=== PATIENT | female | born 1955 | race Caucasian/White ===

== ENCOUNTER → 2018-02-11 13:00 | Outpatient (CLI) | payer OTHER, SELFPAY | PROVIDERS: Family Provider Physician Assistant; PCP Physician Assistant | DX: Z23 Encounter for immunization (principal) | CPT/HCPCS: 90471; 90686 ==

== ENCOUNTER → 2018-05-24 10:12 | Outpatient (CLI) | payer OTHER, SELFPAY ==
--- NOTE | 2018-05-24 10:16 | DI.MG.S_ITS ---
BILATERAL DIGITAL SCREENING MAMMOGRAM 3D/2D WITH CAD: 05/24/2018 CLINICAL: Routine screening. Comparison is made to exams dated: 05/21/2017 mammogram, 05/18/2016 mammogram, and 05/16/2015 mammogram - [facility]. There are scattered fibroglandular elements in both breasts. Current study was also evaluated with a Computer Aided Detection (CAD) system. No significant masses, calcifications, or other findings are seen in either breast. There has been no significant interval change. IMPRESSION: NEGATIVE There is no mammographic evidence of malignancy. A 1 year screening mammogram is recommended. This exam was interpreted at Station ID: [id number]. NOTE: For mammograms, a report in lay terms will be sent to the patient. Approximately 15% of breast malignancies will not be visualized mammographically. In the management of a palpable breast mass, a negative mammogram must not discourage biopsy of a clinically suspicious lesion. Electronically Signed By: Guerrero gamboa/je:05/26/2018 10:21:53 letter sent: Normal Exam ACR BI-RADS Category 1: Negative 3341F
== END ==
PROVIDERS: Family Provider Physician Assistant; PCP Physician Assistant; Visit Provider Physician Assistant
DX: Z12.31 Encounter for screening mammogram for malignant neoplasm of breast (principal)
CPT/HCPCS: 77063; 77067

== ENCOUNTER → 2018-11-18 08:28 | Outpatient (CLI) | payer OTHER, SELFPAY ==
[2018-11-18 10:12] LABS: Hemoglobin A1C% w Est Avg Glu 5.8 % (4.0-6.0)
[2018-11-18 10:16] LABS: Creatinine Urine Random 115.4 mg/dL
[2018-11-18 10:19] LABS: Alanine Aminotransferase 37 IU/L (9-52); Albumin 4.7 g/dL (3.5-5.0); Albumin Globulin Ratio 1.3 (1.0-2.8); Alkaline Phosphatase 86 U/L (38-126); Aspartate Aminotransferase 29 IU/L (14-36); BUN Creatinine Ratio 26.3 (6-22); Bilirubin Total 0.6 mg/dL (0.2-1.3); Blood Urea Nitrogen 21 mg/dL (7-17); Calcium 9.4 mg/dL (8.4-10.2); Carbon Dioxide 29 mmol/L (22-32); Chloride 103 mmol/L (98-107); Cholesterol 224 mg/dL (140-199); Estimated Glomerular Filt Rate > 60.0 mL/min (>60); Globulin 3.5 g/dL (1.7-4.1); Glucose 111 mg/dL (80-110); HDL Cholesterol 52 mg/dL (40-60); HEMOLYSIS < 15 (0-50); LDL Cholesterol Calculated 132 mg/dL (<100); Potassium 4.2 mmol/L (3.4-5.1); Sodium 142 mmol/L (137-145); Total Protein 8.2 g/dL (6.3-8.2); Triglycerides 198 mg/dL (35-150)
[2018-11-18 10:20] LABS: Microalbumi Creatinin Ratio Ur 15.5 ug/mg CR (<30); Microalbumin Urine Random 1.8 mg/dL (0-1.6)
== END ==
PROVIDERS: Family Provider Physician Assistant; PCP Physician Assistant; Visit Provider Physician Assistant
DX: E78.5 Hyperlipidemia, unspecified (principal); I10 Essential (primary) hypertension; R73.01 Impaired fasting glucose
CPT/HCPCS: 36415; 80053; 80061; 82043; 82570; 83036

== ENCOUNTER → 2019-02-17 13:28 | Outpatient (CLI) | payer OTHER, SELFPAY | PROVIDERS: PCP Physician Assistant | DX: Z23 Encounter for immunization (principal) | CPT/HCPCS: 90471; 90686 ==

== ENCOUNTER → 2019-05-26 08:10 | Outpatient (CLI) | payer OTHER, SELFPAY ==
[2019-05-26 08:51] LABS: Alanine Aminotransferase 31 IU/L (<35); Albumin 4.9 g/dL (3.5-5.0); Albumin Globulin Ratio 1.4 (1.0-2.8); Alkaline Phosphatase 89 U/L (38-126); Aspartate Aminotransferase 33 IU/L (14-36); BUN Creatinine Ratio 23.3 (6-22); Bilirubin Total 0.6 mg/dL (0.2-1.3); Blood Urea Nitrogen 21 mg/dL (7-17); Calcium 9.6 mg/dL (8.4-10.2); Carbon Dioxide 26 mmol/L (22-32); Chloride 102 mmol/L (98-107); Cholesterol 223 mg/dL (140-199); Estimated Glomerular Filt Rate > 60.0 mL/min (>60); Globulin 3.4 g/dL (1.7-4.1); Glucose 116 mg/dL (80-110); HDL Cholesterol 55 mg/dL (40-60); HEMOLYSIS < 15 (0-50); LDL Cholesterol Calculated 137 mg/dL (<100); Potassium 4.2 mmol/L (3.4-5.1); Sodium 138 mmol/L (137-145); Total Protein 8.3 g/dL (6.3-8.2); Triglycerides 155 mg/dL (35-150)
[2019-05-26 10:00] LABS: Creatinine Urine Random 164.7 mg/dL
[2019-05-26 10:05] LABS: Microalbumi Creatinin Ratio Ur 20.6 ug/mg CR (<30); Microalbumin Urine Random 3.4 mg/dL (0-1.6)
== END ==
PROVIDERS: PCP Physician Assistant; Visit Provider Physician Assistant
DX: E78.5 Hyperlipidemia, unspecified (principal); I10 Essential (primary) hypertension; R73.01 Impaired fasting glucose
CPT/HCPCS: 36415; 80053; 80061; 82043; 82570; 83036

== ENCOUNTER → 2019-06-15 13:35 | Outpatient (CLI) | payer OTHER, SELFPAY ==
--- NOTE | 2019-06-15 13:37 | DI.MG.S_ITS ---
BILATERAL DIGITAL SCREENING MAMMOGRAM 3D/2D WITH CAD: 06/15/2019 CLINICAL: Routine screening. Comparison is made to exams dated: 05/24/2018 mammogram, 05/21/2017 mammogram, and 05/18/2016 mammogram - [facility]. There are scattered fibroglandular elements in both breasts. Current study was also evaluated with a Computer Aided Detection (CAD) system. No significant masses, calcifications, or other findings are seen in either breast. There has been no significant interval change. IMPRESSION: NEGATIVE There is no mammographic evidence of malignancy. A 1 year screening mammogram is recommended. This exam was interpreted at Station ID: [id number]. NOTE: For mammograms, a report in lay terms will be sent to the patient. Approximately 15% of breast malignancies will not be visualized mammographically. In the management of a palpable breast mass, a negative mammogram must not discourage biopsy of a clinically suspicious lesion. Electronically Signed By: Pardeep wynn/je:06/16/2019 11:24:19 letter sent: Normal Exam ACR BI-RADS Category 1: Negative 3341F
== END ==
PROVIDERS: PCP Physician Assistant; Visit Provider Physician Assistant
DX: Z12.31 Encounter for screening mammogram for malignant neoplasm of breast (principal)
CPT/HCPCS: 77063; 77067

== ENCOUNTER → 2020-02-25 | Outpatient (CLI) | payer OTHER, SELFPAY | PROVIDERS: PCP Registered Nurse Diabetes Educator; Referring Provider Internal Medicine; Visit Provider Internal Medicine | DX: Z23 Encounter for immunization (principal) | CPT/HCPCS: 90471; 90686 ==

== ENCOUNTER → 2020-03-03 08:34 | Outpatient (CLI) | payer OTHER, SELFPAY ==
[2020-03-03 09:48] LABS: Add Manual Diff / Slide Review NO; Basophils Absolute Auto 100 /uL (0-100); Basophils Percent Auto 0.8 % (0-2); Eosinophils Absolute Auto 100 /uL (0-450); Eosinophils Percent Auto 1.8 % (2-4); Hematocrit 40.7 % (36-46); Hemoglobin 13.6 g/dL (12.0-16.0); Lymphocytes Absolute Auto 1500 /uL (1100-4500); Lymphocytes Percent Auto 24.9 % (25-40); Mean Corpuscular HGB Conc 33.4 % (30-36); Mean Corpuscular Hemoglobin 29.8 PG (26-34); Mean Corpuscular Volume 89.1 fL (80-100); Monocytes Absolute Auto 400 /uL (0-900); Monocytes Percent Auto 6.7 % (3-14); Neutrophils Absolute Auto 4100 /uL (1500-7000); Neutrophils Percent Auto 65.8 % (50-75); Platelet Count 214 X10^3/uL (150-400); Red Blood Cell Count 4.57 X10^6/uL (4.0-5.2); Red Cell Distribution Width 13.7 % (11.6-14.8); White Blood Cell Count 6.2 X10^3/uL (4.5-11.0)
[2020-03-03 10:21] LABS: Alanine Aminotransferase 31 IU/L (<35); Albumin 4.5 g/dL (3.5-5.0); Albumin Globulin Ratio 1.4 (1.0-2.8); Alkaline Phosphatase 83 U/L (38-126); Aspartate Aminotransferase 31 IU/L (14-36); BUN Creatinine Ratio 24.1 (6-22); Bilirubin Total 0.6 mg/dL (0.2-1.3); Blood Urea Nitrogen 20 mg/dL (7-17); Calcium 9.5 mg/dL (8.4-10.2); Carbon Dioxide 29 mmol/L (22-32); Chloride 103 mmol/L (98-107); Cholesterol 218 mg/dL (140-199); Estimated Glomerular Filt Rate > 60.0 mL/min (>60); Globulin 3.3 g/dL (1.7-4.1); Glucose 104 mg/dL (80-110); HDL Cholesterol 60 mg/dL (40-60); HEMOLYSIS < 15 (0-50); LDL Cholesterol Calculated 127 mg/dL (<100); Potassium 4.2 mmol/L (3.4-5.1); Sodium 140 mmol/L (137-145); Total Protein 7.8 g/dL (6.3-8.2); Triglycerides 157 mg/dL (35-150)
[2020-03-03 10:27] LABS: Hemoglobin A1C% w Est Avg Glu 6.1 % (4.0-6.0)
[2020-03-03 10:37] LABS: TSH w/ Reflex to FT4 1.63 uIU/mL (0.47-4.68)
== END ==
PROVIDERS: PCP Registered Nurse Diabetes Educator; Referring Provider Registered Nurse Diabetes Educator; Visit Provider Registered Nurse Diabetes Educator
DX: E78.5 Hyperlipidemia, unspecified (principal); I10 Essential (primary) hypertension; R73.01 Impaired fasting glucose
CPT/HCPCS: 36415; 80053; 80061; 83036; 84443; 85025

== ENCOUNTER → 2020-06-02 08:52 | Outpatient (CLI) | payer OTHER, SELFPAY ==
[2020-06-02] MEDS: COVID-19 VACC(MODERNA-1)/PF 100 MCG/0.5 ML VIAL IM (08:57)
== END ==
PROVIDERS: PCP Registered Nurse Diabetes Educator; Visit Provider Internal Medicine
DX: Z23 Encounter for immunization (principal)
CPT/HCPCS: 0011A; 91301

== ENCOUNTER → 2020-07-01 08:50 | Outpatient (CLI) | payer OTHER, SELFPAY ==
[2020-07-01] MEDS: COVID-19 VACC #2, MRNA(MOD) 100 MCG/0.5 ML VIAL IM (08:58)
== END ==
PROVIDERS: PCP Registered Nurse Diabetes Educator; Visit Provider Internal Medicine
DX: Z23 Encounter for immunization (principal)
CPT/HCPCS: 0012A; 91301

== ENCOUNTER → 2020-07-13 08:29 | Outpatient (CLI) | payer OTHER, SELFPAY ==
[2020-07-13 10:02] LABS: Cholesterol 186 mg/dL (140-199); HDL Cholesterol 75 mg/dL (40-60); LDL Cholesterol Calculated 82 mg/dL (<100); Triglycerides 145 mg/dL (35-150)
== END ==
PROVIDERS: PCP Registered Nurse Diabetes Educator; Referring Provider Registered Nurse Diabetes Educator; Visit Provider Registered Nurse Diabetes Educator
DX: E78.5 Hyperlipidemia, unspecified (principal)
CPT/HCPCS: 36415; 80061

== ENCOUNTER → 2021-01-12 14:18 | Outpatient (CLI) | payer OTHER, SELFPAY ==
--- NOTE | 2021-01-12 14:19 | DI.MG.S_ITS ---
BILATERAL DIGITAL SCREENING MAMMOGRAM 3D/2D WITH CAD: 01/12/2021 CLINICAL: Routine screening. Comparison is made to exams dated: 06/15/2019 mammogram, 05/24/2018 mammogram, and 05/21/2017 mammogram - [facility]. There are scattered fibroglandular elements in both breasts. Current study was also evaluated with a Computer Aided Detection (CAD) system. There are benign calcifications in both breasts. No significant masses, calcifications, or other findings are seen in either breast. There has been no significant interval change. IMPRESSION: BENIGN There is no mammographic evidence of malignancy. A 1 year screening mammogram is recommended. This exam was interpreted at Station ID: [id number]. NOTE: For mammograms, a report in lay terms will be sent to the patient. Approximately 15% of breast malignancies will not be visualized mammographically. In the management of a palpable breast mass, a negative mammogram must not discourage biopsy of a clinically suspicious lesion. Electronically Signed By: Andriy alvarado/je:01/12/2021 14:39:05 letter sent: Normal Exam ACR BI-RADS Category 2: Benign Finding(s) 3342F
== END ==
PROVIDERS: PCP Registered Nurse Diabetes Educator; Referring Provider Registered Nurse Diabetes Educator; Visit Provider Registered Nurse Diabetes Educator
DX: Z12.31 Encounter for screening mammogram for malignant neoplasm of breast (principal)
CPT/HCPCS: 77063; 77067

== ENCOUNTER → 2021-02-24 10:10 | Outpatient (CLI) | payer OTHER, SELFPAY ==
[2021-02-24 12:45] LABS: COVID19 -Nasal RAPID Negative (Negative)
== END ==
PROVIDERS: PCP Registered Nurse Diabetes Educator; Visit Provider Physician Assistant
DX: Z20.822 Contact with and (suspected) exposure to COVID-19 (principal)
CPT/HCPCS: 87635

== ENCOUNTER → 2021-02-28 09:54 | Outpatient (CLI) | payer OTHER, SELFPAY ==
[2021-02-28 12:21] LABS: COVID19 -Nasal RAPID Negative (Negative)
== END ==
PROVIDERS: PCP Registered Nurse Diabetes Educator; Referring Provider Nurse Practitioner Family; Visit Provider Nurse Practitioner Family
DX: Z20.822 Contact with and (suspected) exposure to COVID-19 (principal)
CPT/HCPCS: 87635

== ENCOUNTER → 2021-03-02 10:04 | Outpatient (CLI) | payer OTHER, SELFPAY | PROVIDERS: PCP Registered Nurse Diabetes Educator; Referring Provider Internal Medicine; Visit Provider Internal Medicine | DX: Z23 Encounter for immunization (principal) | CPT/HCPCS: 90471; 90662 ==

== ENCOUNTER → 2021-03-06 10:26 | Outpatient (CLI) | payer OTHER, SELFPAY ==
[2021-03-06 12:38] LABS: COVID19 -Nasal RAPID Negative (Negative)
== END ==
PROVIDERS: PCP Registered Nurse Diabetes Educator; Visit Provider Nurse Practitioner Family
DX: Z20.822 Contact with and (suspected) exposure to COVID-19 (principal)
CPT/HCPCS: 87635

== ENCOUNTER → 2021-04-14 10:52 | Outpatient (CLI) | payer OTHER, SELFPAY ==
[2021-04-14] MEDS: COVID-19 VACC #3, MRNA(MOD) 50 MCG/0.25 ML VIAL IM (11:04)
== END ==
PROVIDERS: PCP Registered Nurse Diabetes Educator; Visit Provider Internal Medicine
DX: Z23 Encounter for immunization (principal)
CPT/HCPCS: 0013A; 91301

== ENCOUNTER → 2021-05-29 08:10 | Outpatient (CLI) | payer OTHER, SELFPAY ==
[2021-05-29 09:24] LABS: Alanine Aminotransferase 33 IU/L (<35); Albumin 4.5 g/dL (3.5-5.0); Albumin Globulin Ratio 1.5 (1.0-2.8); Alkaline Phosphatase 76 U/L (38-126); Aspartate Aminotransferase 32 IU/L (14-36); BUN Creatinine Ratio 28.9 (6-22); Bilirubin Total 0.6 mg/dL (0.2-1.3); Blood Urea Nitrogen 26 mg/dL (7-17); Calcium 9.7 mg/dL (8.4-10.2); Carbon Dioxide 27 mmol/L (22-32); Chloride 105 mmol/L (98-107); Cholesterol 168 mg/dL (140-199); Estimated Glomerular Filt Rate > 60.0 mL/min (>60); Globulin 3.1 g/dL (1.7-4.1); Glucose 115 mg/dL (80-110); HDL Cholesterol 67 mg/dL (40-60); HEMOLYSIS < 15 (0-50); LDL Cholesterol Calculated 70 mg/dL (<100); Potassium 4.1 mmol/L (3.4-5.1); Sodium 139 mmol/L (137-145); Total Protein 7.6 g/dL (6.3-8.2); Triglycerides 155 mg/dL (35-150)
[2021-05-29 09:26] LABS: Hematocrit 39.1 % (36-46); Hemoglobin 13.1 g/dL (12.0-16.0); Mean Corpuscular HGB Conc 33.6 % (30-36); Mean Corpuscular Hemoglobin 29.4 PG (26-34); Mean Corpuscular Volume 87.6 fL (80-100); Platelet Count 216 X10^3/uL (150-400); Red Blood Cell Count 4.47 X10^6/uL (4.0-5.2); White Blood Cell Count 5.9 X10^3/uL (4.5-11.0)
[2021-05-29 09:30] LABS: Hemoglobin A1C% w Est Avg Glu 6.3 % (4.0-6.0)
[2021-05-29 10:04] LABS: TSH w/ Reflex to FT4 1.82 uIU/mL (0.47-4.68)
== END ==
PROVIDERS: PCP Registered Nurse Diabetes Educator; Referring Provider Registered Nurse Diabetes Educator; Visit Provider Registered Nurse Diabetes Educator
DX: E78.5 Hyperlipidemia, unspecified (principal); I10 Essential (primary) hypertension; R73.01 Impaired fasting glucose
CPT/HCPCS: 36415; 80053; 80061; 83036; 84443; 85027

== ENCOUNTER → 2021-06-14 14:34 | Outpatient (CLI) | payer OTHER, SELFPAY | PROVIDERS: PCP Registered Nurse Diabetes Educator; Referring Provider Registered Nurse Diabetes Educator; Visit Provider Registered Nurse Diabetes Educator | DX: Z13.820 Encounter for screening for osteoporosis (principal); Z78.0 Asymptomatic menopausal state | CPT/HCPCS: 77080 ==

== ENCOUNTER → 2022-01-27 10:27 | Outpatient (CLI) | payer OTHER, SELFPAY ==
--- NOTE | 2022-01-27 10:28 | DI.MG.S_ITS ---
BILATERAL DIGITAL SCREENING MAMMOGRAM 3D/2D WITH CAD: 01/27/2022 CLINICAL: Routine screening. Comparison is made to exams dated: 01/12/2021 mammogram, 06/15/2019 mammogram, and 05/24/2018 mammogram - [facility]. There are scattered areas of fibroglandular density in both breasts (category b / 25%-50% glandular tissue). Current study was also evaluated with a Computer Aided Detection (CAD) system. There are benign calcifications in both breasts. No significant masses, calcifications, or other findings are seen in either breast. There has been no significant interval change. IMPRESSION: BENIGN There is no mammographic evidence of malignancy. A 1 year screening mammogram is recommended. Based on the Tyrer Cuzick model (a risk assessment model) the patient's lifetime risk is 4.0% and her 10 year risk is 2.1%. According to the ACR, ACS, and NCCN guidelines, an annual breast MRI exam along with mammogram is recommended if the patient's lifetime risk is 20% or greater. This exam was interpreted at Station ID: [id number]. NOTE: For mammograms, a report in lay terms will be sent to the patient. Approximately 15% of breast malignancies will not be visualized mammographically. In the management of a palpable breast mass, a negative mammogram must not discourage biopsy of a clinically suspicious lesion. Electronically Signed By: Pardeep lechuga/je:01/30/2022 08:06:06 letter sent: Normal Exam ACR BI-RADS Category 2: Benign Finding(s) 3342F
== END ==
PROVIDERS: PCP Registered Nurse Diabetes Educator; Referring Provider Registered Nurse Diabetes Educator; Visit Provider Registered Nurse Diabetes Educator
DX: Z12.31 Encounter for screening mammogram for malignant neoplasm of breast (principal)
CPT/HCPCS: 77063; 77067

== ENCOUNTER → 2022-02-20 08:07 | Outpatient (CLI) | payer OTHER, SELFPAY | PROVIDERS: PCP Registered Nurse Diabetes Educator; Referring Provider Internal Medicine; Visit Provider Internal Medicine | DX: Z23 Encounter for immunization (principal) | CPT/HCPCS: 90471; 90662 ==

== ENCOUNTER → 2022-04-12 13:35 | Outpatient (CLI) | payer OTHER, SELFPAY ==
[2022-04-12 15:11] LABS: Glucose 92 mg/dL (80-110)
[2022-04-12 15:28] LABS: Hemoglobin A1C% w Est Avg Glu 6.3 % (4.0-6.0)
== END ==
PROVIDERS: PCP Registered Nurse Diabetes Educator; Referring Provider Registered Nurse Diabetes Educator; Visit Provider Registered Nurse Diabetes Educator
DX: R73.01 Impaired fasting glucose (principal); Z13.820 Encounter for screening for osteoporosis
CPT/HCPCS: 36415; 82947; 83036

== ENCOUNTER → 2022-05-18 13:24 | Outpatient (CLI) | payer OTHER, SELFPAY | PROVIDERS: PCP Registered Nurse Diabetes Educator; Referring Provider Registered Nurse Diabetes Educator; Visit Provider Registered Nurse Diabetes Educator | DX: R01.1 Cardiac murmur, unspecified (principal) | CPT/HCPCS: 93005 ==

== ENCOUNTER → 2022-06-08 13:09 | Outpatient (CLI) | payer OTHER, SELFPAY ==
--- NOTE | 2022-06-08 13:12 | DI.ECHO.S_ITS ---
[place] [facility]---------+ [facility] +---------+ : : [address] : : : : [id number] : : : : Phone: [phone]---------+ Echocardiogram Report + + :Name: JODI GUZMAN Study Date: 06/08/2022 Height: 64 in : :[facility] ReadingLocation: Weight: 191 lb : : Gender: Female BSA: 1.9 m2 : :: 1955 Age: 66 yrs BP: 158/83 mmHg: :Reason For Study: Murmur : : Performed By: Yahaira Potter : :Referring: FELICITAS IYER : + + Interpretation Summary The ejection fraction is estimated to be 60-65%. Diastolic function could not be accurately assessed due to unobtainable data. The right ventricle is normal in size and function. The left atrium is mildly dilated. There is mild mitral regurgitation. There is trace aortic regurgitation. Unable to estimate PASP. The ascending aorta is mildly enlarged. Procedure: A two-dimensional transthoracic echocardiogram with color flow and Doppler was performed. The study quality was technically adequate. There is no prior echocardiogram noted for this patient. The patient was in normal sinus rhythm during the exam. Left Ventricle: The left ventricle is normal in size. Left ventricular wall thickness is borderline increased. There is no ventricular septal defect visualized. The ejection fraction is estimated to be 60-65%. Left ventricular wall motion is normal. Diastolic function could not be accurately assessed due to unobtainable data. Right Ventricle: The right ventricle is normal in size and function. Atria: The left atrium is mildly dilated. Right atrial size is normal. There is no Doppler evidence for an interatrial shunt. Mitral Valve: The mitral valve is normal in structure and function. There is mild mitral regurgitation. Aortic Valve: The aortic valve is not well visualized. The aortic valve is trileaflet. There is mild aortic valve sclerosis. There is no aortic valve stenosis. There is trace aortic regurgitation. Tricuspid Valve: The tricuspid valve is not well visualized, but is grossly normal. Pulmonary artery pressures cannot be estimated because of the lack of a measurable TR jet velocity but the IVC suggests a CVP of around 3 mmHg. No tricuspid regurgitation. Pulmonic Valve: The pulmonic valve is not well seen, but is grossly normal. Great Vessels: The aortic root is normal size. The ascending aorta is mildly enlarged. The aortic arch is at the upper limits of normal in size. The IVC is of normal diameter and collapses greater than 50% with a sniff. This suggests a low right atrial pressure of 3 mm Hg. Pericardium/ Pleura There is no pericardial effusion. MMode/2D Measurements & Calculations LVIDd: 4.8 cm LVOT diam: 2.0 cm LVIDs: 2.8 cm Ao root diam: 3.1 cm FS: 42.5 % asc Aorta Diam: 3.8 cm EPSS: 0.57 cm Ao Arch Diam (Prox Trans): 3.2 cm IVSd: 0.82 cm LVPWd: 0.91 cm LV begum. diameter/BSA (cm/m^2): 2.5 LV sys. diameter/BSA (cm/m^2): 1.4 LA A2 area: 19.7 cm2 RA long axis: 5.0 cm LA A4 area: 21.8 cm2 RA area: 15.4 cm2 LA length (vol): 5.4 cm RA vol: 40.2 ml LA vol: 67.1 ml RA : 21.0 ml/m2 LA vol index: 35.0 ml/m2 IVC diam: 1.1 cm RVD1 (basal): 3.8 cm TAPSE: 2.4 cm Doppler Measurements & Calculations Ao V2 max: 187.8 cm/sec LVOT Max Anil: 89.3 cm/sec Ao V2 mean: 120.1 cm/sec LV V1 max P.2 mmHg Ao max P.1 mmHg LV V1 VTI: 23.9 cm Ao mean P.6 mmHg LEENA(I,D): 1.9 cm2 Ao V2 VTI: 41.8 cm LEENA(V,D): 1.6 cm2 sev ratio: 0.57 LEENA indexed to BSA (cm^2/m^2): 0.98 MV E max anil: 75.6 cm/sec PA V2 max: 94.9 cm/sec MV A max anil: 79.8 cm/sec PA V2 mean: 64.6 cm/sec MV E/A: 0.95 PA mean P.9 mmHg Med Peak E' Anil: 6.5 cm/sec PA pr(Accel): 19.9 mmHg E/E' med: 11.6 Lat Peak E' Anil: 7.3 cm/sec E/E' lat: 10.3 E/e' average: 10.9 MV dec time: 0.23 sec PISA: 0.37 cm2 SV(LVOT): 78.5 ml MR flow rate: 13.6 cm3/sec MR PISA radius: 0.24 cm Reading Physician:03:36 PM
== END ==
PROVIDERS: PCP Registered Nurse Diabetes Educator; Referring Provider Registered Nurse Diabetes Educator; Visit Provider Registered Nurse Diabetes Educator
DX: I08.0 Rheumatic disorders of both mitral and aortic valves (principal); I77.89 Other specified disorders of arteries and arterioles; R01.1 Cardiac murmur, unspecified
CPT/HCPCS: 93306

== ENCOUNTER → 2022-06-12 06:57 | Outpatient (CLI) | payer OTHER, SELFPAY ==
[2022-06-12 07:20] LABS: Hematocrit 39.6 % (36-46); Hemoglobin 12.9 g/dL (12.0-16.0); Mean Corpuscular HGB Conc 32.6 % (30-36); Mean Corpuscular Hemoglobin 28.8 PG (26-34); Mean Corpuscular Volume 88.2 fL (80-100); Platelet Count 201 X10^3/uL (150-400); Red Blood Cell Count 4.49 X10^6/uL (4.0-5.2); Red Cell Distribution Width 14.2 % (11.6-14.8); White Blood Cell Count 5.1 X10^3/uL (4.5-11.0)
[2022-06-12 08:58] LABS: Alanine Aminotransferase 29 IU/L (<35); Alkaline Phosphatase 75 U/L (38-126); Aspartate Aminotransferase 29 IU/L (14-36); BUN Creatinine Ratio 28.4 (6-22); Bilirubin Total 0.5 mg/dL (0.2-1.3); Blood Urea Nitrogen 23 mg/dL (7-17); Calcium 9.3 mg/dL (8.4-10.2); Carbon Dioxide 28 mmol/L (22-32); Chloride 103 mmol/L (98-107); Cholesterol 146 mg/dL (140-199); Estimated Glomerular Filt Rate > 60 mL/min (>60); Glucose 109 mg/dL (80-110); HDL Cholesterol 63 mg/dL (40-60); HEMOLYSIS < 15 (0-50); LDL Cholesterol Calculated 56 mg/dL (<100); Potassium 4.4 mmol/L (3.4-5.1); Sodium 140 mmol/L (137-145); Total Protein 7.8 g/dL (6.3-8.2); Triglycerides 133 mg/dL (35-150)
[2022-06-15 16:05] LABS: Albumin 4.5 g/dL (3.5-5.0); Albumin Globulin Ratio 1.4 (1.0-2.8); Globulin 3.3 g/dL (1.7-4.1)
== END ==
PROVIDERS: PCP Registered Nurse Diabetes Educator; Referring Provider Registered Nurse Diabetes Educator; Visit Provider Registered Nurse Diabetes Educator
DX: E78.5 Hyperlipidemia, unspecified (principal); I10 Essential (primary) hypertension; R73.01 Impaired fasting glucose
CPT/HCPCS: 36415; 80053; 80061; 85027

== ENCOUNTER 2022-07-25 09:24 | Emergency (ER) | payer OTHER, MEDICARE, SELFPAY ==
[2022-07-25 09:33] VITALS: BP 145/65; PULSE 60; RESP 16; TEMP 36.7; O2SAT 99; BMI 30.9
--- NOTE | 2022-07-25 10:05 | ED_ITS ---
HPI - Allergic Reaction General Chief complaint: Allergic Reaction Stated complaint: allergic reaction on face Time Seen by Provider: 07/25/22 09:59 Source: patient Mode of arrival: Ambulatory Limitations: no limitations History of Present Illness HPI narrative: The patient saw her dentist yesterday, she had her dentures refitted. When she bit down on the dentures she felt a tingling in her right mandible area. She developed swelling to the upper lip. The swelling persists. She has only minimal pain to her gum. She is no swelling to her tongue, no tightness in her airway. She is no wheezing or stridor. She denies shortness of breath. She is no fever. Edema is limited to the upper lip. Related Data Home Medications Medication Instructions Recorded Confirmed Fish Oil (#MAREPA) 1,200 mg PO QDAY ##0 03/28/12 06/13/22 calcium carb-ergocalciferol (vit tab PO 07/13/20 06/13/22 D2) 500 mg-125 unit tablet Previous Rx's Medication Instructions Recorded [Carpal Tunnel Brace] ea ##1 11/07/16 atenolol 50 mg tablet 50 mg PO DAILY #90 tabs 06/13/22 gabapentin 100 mg capsule 100 mg PO HS #90 caps 06/13/22 meloxicam 15 mg tablet 15 mg PO DAILY #90 tabs 06/13/22 rosuvastatin 10 mg tablet 10 mg PO BEDTIME #90 tabs 06/13/22 amoxicillin 875 mg-potassium 1 tab PO BID #14 tabs 07/25/22 clavulanate 125 mg tablet prednisone 20 mg tablet 40 mg PO DAILY 5 days #10 tabs 07/25/22 Allergies Allergy/AdvReac Type Severity Reaction Status Date / Time No Known Drug Allergies Allergy Verified 07/25/22 09:38 Review of Systems Constitutional Constitutional: Reports as per HPI, Denies chills, Denies fatigue, Denies fever(s) and Denies headache(s) Eyes Eyes: Denies blurry vision and Denies change in vision ENT Ears, Nose, Mouth, and Throat: Reports as per HPI, Reports dental pain, Denies dysphagia, Denies dizziness, Denies ear discharge, Denies otalgia, Denies facial pain and Denies headache(s) Cardiovascular Cardiovascular: Denies chest pain, Denies rapid heart rate and Denies dyspnea Respiratory Respiratory: Denies cough and Denies dyspnea Gastrointestinal Gastrointestinal: Denies dysphagia Neurologic Neurologic: Denies dizziness and Denies headache(s) Endocrine Endocrine: Denies fatigue Patient History Medical History Ascending aorta enlargement Left atrial dilation Mild mitral regurgitation Osteoarthritis, hand Systolic murmur Family History Father Type II diabetes mellitus Essential hypertension Mother Hyperlipidemia Type II diabetes mellitus Social History Smoking Status: Never smoker second hand exposure: Yes (only when I go to the [employer], but I don't go very often. ) alcohol intake: current (wine only on special occasions.) substance use type: does not use Smoking Status: Never smoker alcohol intake frequency: 0-2 drinks per day Substance Use Type: does not use Exam Initial Vital Signs Initial Vital Signs: Vital Signs Temperature 98.1 F 07/25/22 09:33 Pulse Rate 60 07/25/22 09:33 Respiratory Rate 16 07/25/22 09:33 Blood Pressure 145/65 H 07/25/22 09:33 Pulse Oximetry 99 07/25/22 09:33 Oxygen Delivery Method Room Air 07/25/22 09:33 Const General: comfortable, well developed and well groomed HENMT Head: normocephalic and atraumatic (Other than her lip) Nose: external nose normal [facility] Other: Edema to the upper lip, no warmth. No suggestion of cellulitis. No tongue or oropharyngeal edema. Abrasion to the right gum, likely associated with the fitting yesterday. Neck Neck: normal visual inspection and No lymphadenopathy Chest Chest: normal inspection of the chest Resp Auscultation: clear to auscultation bilaterally Course Orders Ordered: Discontinued Medications Amoxicillin/Clavulanate Potassium (Amoxicillin/Clav 875/125 Mg) 1 tab PO NOW ONE Stop: 07/25/22 10:05 Prednisone (Prednisone 20 Mg Tablet) 40 mg PO NOW ONE Stop: 07/25/22 10:05 Vital Signs Vital signs: Vital Signs - 8 hr 07/25/22 09:33 Temperature 98.1 F Pulse Rate 60 Respiratory Rate 16 Blood Pressure 145/65 H Pulse Oximetry 99 Oxygen Delivery Method Room Air Discharge Plan Departure Patient Disposition: Home Clinical Impression: Abrasion of gum, Lip edema Instructions: DI for Abrasion Activity Restrictions/Additional Instructions: There is a small injury to your gum from the fitting. I am going to put you on both steroids for possible allergic reaction, as well as Augmentin, an antibiotic. Follow-up with your dentist for repeat evaluation for using the dentures. Augmentin and prednisone prescriptions have been forwarded to your pharmacy. Return here if you developed increased facial swelling or if you develop airway tightness. Prescriptions: New amoxicillin-pot clavulanate 875-125 mg tablet 1 tab PO BID Qty: 14 0RF prednisone 20 mg tablet 40 mg PO DAILY 5 Days Qty: 10 0RF No Action Fish Oil (#MAREPA) 1,200 mg PO QDAY Qty: 0 [Carpal Tunnel Brace] Qty: 1 0RF calcium carbonate-vitamin D2 500-125 mg-unit tablet PO atenolol 50 mg tablet 50 mg PO DAILY Qty: 90 3RF gabapentin 100 mg capsule 100 mg PO HS Qty: 90 3RF meloxicam 15 mg tablet 15 mg PO DAILY Qty: 90 3RF rosuvastatin 10 mg tablet 10 mg PO BEDTIME Qty: 90 3RF Referrals: Ousmane Ortiz ARNP [Primary Care Provider] - Stand Alone Forms: Patient Portal/API
[2022-07-25] MEDS: predniSONE 20 MG TABLET 40 MG PO (10:13)
[2022-07-25] MEDS: AMOXICILLIN/CLAV 875/125 MG 1 TAB PO (10:13)
== END 2022-07-25 10:34 | disposition home or self-care (01) ==
PROVIDERS: Emergency Provider Emergency Medicine; PCP Registered Nurse Diabetes Educator
DX: S00.512A Abrasion of oral cavity, initial encounter (principal); R60.0 Localized edema
CPT/HCPCS: 99283

== ENCOUNTER → 2022-09-11 13:30 | Outpatient (CLI) | payer OTHER, MEDICARE, SELFPAY ==
[2022-09-11 15:31] LABS: Influenza A - CEPHEID Flu A POSITIVE (NEGATIVE); Influenza B - CEPHEID Flu B NEGATIVE (NEGATIVE); Respiratory Syncytial Virus Negative (Negative)
[2022-09-11 16:10] LABS: COVID-19 CEPHEID 4-PLEX PCR Negative (Negative)
== END ==
PROVIDERS: PCP Registered Nurse Diabetes Educator; Visit Provider Registered Nurse Diabetes Educator
DX: U07.1 COVID-19 (principal)
CPT/HCPCS: 0241U

== ENCOUNTER → 2022-09-20 11:50 | Outpatient (CLI) | payer OTHER, MEDICARE, SELFPAY ==
--- NOTE | 2022-09-20 11:50 | DI.RAD.S_ITS ---
PROCEDURE: XR CHEST 2V INDICATIONS: cough, persisting TECHNIQUE: 2 views of the chest were acquired. COMPARISON: [facility], , CHEST 2 VIEW, 02/27/2017, 10:20. FINDINGS: Surgical changes and devices: None. Lungs and pleura: Lungs are clear. No pleural effusions or pneumothorax. Chronic elevation the right hemidiaphragm. Mediastinum: Mediastinal contours are normal. Heart size is normal. Bones and chest wall: No suspicious bony abnormalities. Soft tissues appear unremarkable. IMPRESSION: No acute cardiopulmonary disease. Dictated by: Bobby Galloway [facility] Interpreted: Yordan Sandoval MD on 09/20/2022 at 12:18 Transcribed by: LITZY on 09/20/2022 at 12:19 Approved by: Yordan Sandoval M.D. on 09/20/2022 at 16:28
== END ==
PROVIDERS: PCP Registered Nurse Diabetes Educator; Referring Provider Nurse Practitioner Family; Visit Provider Nurse Practitioner Family
DX: J06.9 Acute upper respiratory infection, unspecified (principal)
CPT/HCPCS: 71046

== ENCOUNTER → 2022-11-06 08:32 | Outpatient (CLI) | payer OTHER, MEDICARE, SELFPAY ==
[2022-11-06 10:50] LABS: Glucose 104 mg/dL (80-110)
== END ==
PROVIDERS: PCP Registered Nurse Diabetes Educator; Referring Provider Registered Nurse Diabetes Educator; Visit Provider Registered Nurse Diabetes Educator
DX: R73.01 Impaired fasting glucose (principal)
CPT/HCPCS: 36415; 82947; 83036

== ENCOUNTER → 2023-02-06 12:46 | Outpatient (CLI) | payer OTHER, MEDICARE, SELFPAY ==
--- NOTE | 2023-02-06 | DI.MG.S_ITS ---
BILATERAL DIGITAL SCREENING MAMMOGRAM 3D/2D WITH CAD: 02/06/2023 CLINICAL: Routine screening. Comparison is made to exams dated: 01/27/2022 mammogram, 01/12/2021 mammogram, and 06/15/2019 mammogram - [facility]. There are scattered areas of fibroglandular density in both breasts (category b / 25%-50% glandular tissue). Current study was also evaluated with a Computer Aided Detection (CAD) system. There is a possible developing oval asymmetry in the left breast posterior depth lateral region seen on the craniocaudal view only. This is more prominent. No other significant masses, calcifications, or other findings are seen in either breast. IMPRESSION: INCOMPLETE: NEEDS ADDITIONAL IMAGING EVALUATION The possible developing oval asymmetry in the left breast is indeterminate. Additional views with possible ultrasound are recommended. Based on the Tyrer Cuzick model (a risk assessment model) the patient's lifetime risk is 3.8% and her 10 year risk is 2.1%. According to the ACR, ACS, and NCCN guidelines, an annual breast MRI exam along with mammogram is recommended if the patient's lifetime risk is 20% or greater. This exam was interpreted at Station ID: [id number]. NOTE: For mammograms, a report in lay terms will be sent to the patient. Approximately 15% of breast malignancies will not be visualized mammographically. In the management of a palpable breast mass, a negative mammogram must not discourage biopsy of a clinically suspicious lesion. Electronically Signed By: Pardeep Arboleda M.D. aty/:02/06/2023 17:38:36 letter sent: Additional Imaging Needed ACR BI-RADS Category 0: Incomplete 3340F
== END ==
PROVIDERS: PCP Registered Nurse Diabetes Educator; Referring Provider Registered Nurse Diabetes Educator; Visit Provider Registered Nurse Diabetes Educator
DX: Z12.31 Encounter for screening mammogram for malignant neoplasm of breast (principal)
CPT/HCPCS: 77063; 77067

== ENCOUNTER → 2023-02-21 13:17 | Outpatient (CLI) | payer OTHER, MEDICARE, SELFPAY ==
--- NOTE | 2023-02-21 | DI.MG.S_ITS ---
UNILATERAL LEFT DIGITAL DIAGNOSTIC MAMMOGRAM 3D/2D WITH ADDITIONAL VIEWS: 02/21/2023 CLINICAL: Additional evaluation requested from prior study. Comparison is made to exams dated: 02/06/2023 mammogram, 01/27/2022 mammogram, 01/12/2021 mammogram, and 06/15/2019 mammogram - [facility]. There are scattered areas of fibroglandular density in the left breast (category b / 25%-50% glandular tissue). There is an asymmetry in the left breast posterior depth lateral region seen on the craniocaudal view only. This is not seen in additional views. No other significant masses or calcifications are seen in the breast. IMPRESSION: BENIGN There is no mammographic evidence of malignancy. The asymmetry in the left breast is consistent with fibroglandular tissue and is benign. A 1 year screening mammogram is recommended. Exam findings were conveyed to the patient. Based on the Tyrer Cuzick model (a risk assessment model) the patient's lifetime risk is 3.8% and her 10 year risk is 2.1%. According to the ACR, ACS, and NCCN guidelines, an annual breast MRI exam along with mammogram is recommended if the patient's lifetime risk is 20% or greater. This exam was interpreted at Station ID: [id number]. NOTE: For mammograms, a report in lay terms will be sent to the patient. Approximately 15% of breast malignancies will not be visualized mammographically. In the management of a palpable breast mass, a negative mammogram must not discourage biopsy of a clinically suspicious lesion. Electronically Signed By: Priyank Stoll M.D. [facility] [place]/:02/21/2023 13:58:51 letter sent: Normal Exam ACR BI-RADS Category 2: Benign Finding(s) 3342F
== END ==
PROVIDERS: PCP Registered Nurse Diabetes Educator; Referring Provider Registered Nurse Diabetes Educator; Visit Provider Registered Nurse Diabetes Educator
DX: R92.8 Other abnormal and inconclusive findings on diagnostic imaging of breast (principal)
CPT/HCPCS: 77065; G0279

== ENCOUNTER → 2023-03-21 15:11 | Outpatient (CLI) | payer OTHER, MEDICARE, SELFPAY | PROVIDERS: PCP Registered Nurse Diabetes Educator; Referring Provider Family Medicine; Visit Provider Family Medicine | DX: Z23 Encounter for immunization (principal) | CPT/HCPCS: 90471; 90662 ==

== ENCOUNTER → 2023-06-11 07:53 | Outpatient (CLI) | payer OTHER, MEDICARE, SELFPAY ==
[2023-06-11 09:01] LABS: Hematocrit 40.9 % (36-46); Hemoglobin 13.7 g/dL (12.0-16.0); Mean Corpuscular HGB Conc 33.4 % (30-36); Mean Corpuscular Hemoglobin 29.8 PG (26-34); Mean Corpuscular Volume 89.3 fL (80-100); Platelet Count 213 X10^3/uL (150-400); Red Blood Cell Count 4.58 X10^6/uL (4.0-5.2); Red Cell Distribution Width 14.1 % (11.6-14.8); White Blood Cell Count 5.5 X10^3/uL (4.5-11.0)
[2023-06-11 09:14] LABS: Alanine Aminotransferase 26 IU/L (<35); Albumin 4.7 g/dL (3.5-5.0); Albumin Globulin Ratio 1.4 (1.0-2.8); Alkaline Phosphatase 75 U/L (38-126); Aspartate Aminotransferase 29 IU/L (14-36); BUN Creatinine Ratio 23.3 (6-22); Bilirubin Total 0.7 mg/dL (0.2-1.3); Blood Urea Nitrogen 20 mg/dL (7-17); Calcium 9.9 mg/dL (8.4-10.2); Carbon Dioxide 27 mmol/L (22-32); Chloride 102 mmol/L (98-107); Cholesterol 173 mg/dL (140-199); Estimated Glomerular Filt Rate > 60 mL/min (>60); Globulin 3.4 g/dL (1.7-4.1); Glucose 106 mg/dL (80-110); HDL Cholesterol 68 mg/dL (40-60); HEMOLYSIS < 15 (0-50); LDL Cholesterol Calculated 72 mg/dL (<100); Potassium 4.3 mmol/L (3.4-5.1); Sodium 136 mmol/L (137-145); Total Protein 8.1 g/dL (6.3-8.2); Triglycerides 165 mg/dL (35-150)
[2023-06-11 09:44] LABS: TSH w/ Reflex to FT4 1.96 uIU/mL (0.47-4.68)
== END ==
PROVIDERS: PCP Registered Nurse Diabetes Educator; Referring Provider Registered Nurse Diabetes Educator; Visit Provider Registered Nurse Diabetes Educator
DX: R73.01 Impaired fasting glucose (principal); E78.5 Hyperlipidemia, unspecified; I10 Essential (primary) hypertension
CPT/HCPCS: 36415; 80053; 80061; 83036; 84443; 85027

== ENCOUNTER → 2023-07-10 11:29 | Outpatient (CLI) | payer OTHER, MEDICARE, SELFPAY ==
--- NOTE | 2023-07-10 11:30 | DI.ECHO.S_ITS ---
[place] +---------+ Hospital +---------+ : : [address] : : : : [id number] : : : : Phone: [phone]---------+ Echocardiogram Report + + :Name: JODI GUZMAN Study Date: 07/10/2023 Height: 64 in : :[facility] ReadingLocation: Weight: 180 lb : : Gender: Female BSA: 1.9 m2 : :: 1955 Age: 67 yrs BP: 170/94 mmHg: :Reason For Study: MITRAL REGURGITATION : :Ordering Physician: SHIREEN, : :FELICITAS Performed By: Cindy Fuentes : :Referring: FELICITAS IYER : + + Interpretation Summary 1) Normal left ventricular thickness, size, wall motion, and systolic function (EF 60-65%). 2) Normal right ventricular size and function. 3) No significant valvular abnormalities. 4) The ascending aorta is mildly enlarged at 3.9cm. 5) Hypertension present during the study (BP 170/94mmHg). 6) Compared to the Echo done 06/08/2022, no significant change. Procedure: A two-dimensional transthoracic echocardiogram with color flow and Doppler was performed. The study quality was technically adequate. Comparison is made with the echocardiogram of 06/08/2022. The patient was in sinus bradycardia with heart rates between 49-65 bpm during the exam. Left Ventricle: The left ventricle is normal in size and wall thickness. The ejection fraction is estimated to be 60-65%. Left ventricular systolic function appears normal without focal wall motion abnormalities. Diastolic parameters suggest a relaxation abnormality of the left ventricle, consistent with probable normal filling pressures. Right Ventricle: The right ventricle is normal in size and function. Atria: The left atrium is moderately dilated. Right atrial size is normal. There is no Doppler evidence for an interatrial shunt. Mitral Valve: The mitral valve is normal in structure and function. There is trace mitral regurgitation. Aortic Valve: The aortic valve is trileaflet. The aortic valve opens well. There is no aortic valve stenosis. No aortic regurgitation is present. Tricuspid Valve: The tricuspid valve is normal in structure and function. There is trace tricuspid regurgitation. Pulmonary artery pressures cannot be estimated because of the lack of a measurable TR jet velocity. Pulmonic Valve: The pulmonic valve leaflets are thin and pliable; valve motion is normal. There is no pulmonic valvular regurgitation. Great Vessels: The aortic root is normal size. The ascending aorta is mildly enlarged. The IVC is of normal diameter and collapses greater than 50% with a sniff. This suggests a low right atrial pressure of 3 mm Hg. Pericardium/ Pleura There is no pericardial effusion. There is no pleural effusion. MMode/2D Measurements & Calculations LVIDd: 4.8 cm LVOT diam: 2.0 cm LVIDs: 3.2 cm Ao root diam: 3.4 cm FS: 33.8 % asc Aorta Diam: 3.9 cm EPSS: 0.98 cm Ao Arch Diam (Prox Trans): 3.1 cm IVSd: 0.96 cm LVPWd: 0.96 cm LV begum. diameter/BSA (cm/m^2): 2.5 LV sys. diameter/BSA (cm/m^2): 1.7 LA A2 area: 22.9 cm2 RA long axis: 5.5 cm LA A4 area: 19.7 cm2 RA area: 18.6 cm2 LA length (vol): 5.8 cm RA vol: 53.4 ml LA vol: 66.6 ml RA : 28.5 ml/m2 LA vol index: 35.6 ml/m2 IVC diam: 1.3 cm RVD1 (basal): 4.2 cm TAPSE: 2.3 cm Doppler Measurements & Calculations Ao V2 max: 154.0 cm/sec LVOT Max Anil: 87.5 cm/sec Ao V2 mean: 110.7 cm/sec LV V1 max P.1 mmHg Ao max P.5 mmHg LV V1 VTI: 25.5 cm Ao mean P.4 mmHg LEENA(I,D): 2.0 cm2 Ao V2 VTI: 39.6 cm LEENA(V,D): 1.7 cm2 sev ratio: 0.64 LEENA indexed to BSA (cm^2/m^2): 1.1 MV E max anil: 67.0 cm/sec TR max anil: 221.9 cm/sec MV A max anil: 94.5 cm/sec TR max P.7 mmHg MV E/A: 0.71 PA V2 max: 86.8 cm/sec Med Peak E' Anil: 6.6 cm/sec PA V2 mean: 67.1 cm/sec E/E' med: 10.2 PA mean P.9 mmHg Lat Peak E' Anil: 9.3 cm/sec PA pr(Accel): 36.2 mmHg E/E' lat: 7.2 E/e' average: 8.7 MV dec time: 0.27 sec SV(LVOT): 77.9 ml Reading Physician:01:32 PM
--- NOTE | 2023-07-10 11:30 | DI.RAD.S_ITS ---
Bone Density Report Name: JODI GUZMAN Age: 67 Sex: Female Ethnicity: Date of : 1955 Indication: screening for osteoporosis; Referring Provider: FELICITAS IYER Study: Bone densitometry was performed. Exam Date: July 10, 2023 Accession number: [id number] Bone Density: Region BMD T-score Z-score Classification AP Spine(L1-L4) 1.297 2.3 4.3 Normal Femoral Neck (Left) 0.842 -0.1 1.6 Normal Total Hip (Left) 0.973 0.3 1.7 Normal Femoral Neck (Right) 0.747 -0.9 0.8 Normal Total Hip (Right) 0.980 0.3 1.7 Normal Total Hip Mean 0.977 0.3 1.7 Normal World Health Organization criteria for BMD impression classify patients as: Normal (T-score at or above -1.0), Osteopenia (T-score between -1.0 and -2.5), or Osteoporosis (T-score at or below -2.5). 10-year Fracture Risk: FRAX not reported because: Premenopausal woman All T-scores for Spine Total, Hip Total, Femoral Neck at or above -1.0 Previous Exams: -- Region Exam Age BMD T-score BMD Change BMD Change Date g/cm2 vs Baseline vs Previous -- AP Spine (L1-L4) 07/10/2023 67 1.297 2.3 -0.061 (-4.5%)# -0.061 (-4.5%)# 06/14/2021 65 1.358 2.8 Total Hip(Left) 07/10/2023 67 0.973 0.3 -0.051 (-5.0%)# -0.051 (-5.0%)# 06/14/2021 65 1.024 0.7 Total Hip(Right) 07/10/2023 67 0.980 0.3 0.045 (4.8%)# 0.045 (4.8%)# 06/14/2021 65 0.935 -0.1 -- *Denotes significance at 95% confidence level, LSC for AP Spine = 0.022 g/cm2, LSC for Total Hip = 0.027 g/cm2 # Denotes dissimilar scan types or analysis methods Impression: The patient's bone mass is within expected range for age, gender and ethnicity. No significant bone loss was observed. Discussion: BONE DENSITY IS WITHIN EXPECTED LIMITS FOR AGE, SEX AND RACE. Bone density is within expected limits for age, sex and race at all sites measured. The patient should follow a healthful lifestyle (good nutrition with adequate calcium and vitamin D, and appropriate weight-bearing exercise). Follow-Up: Consider repeating this study in 5 years or sooner if there is some new clinical indication. Reported by: RADHA NI MD on 07/10/2023 12:15:00 PM.
--- NOTE | 2023-07-10 12:02 | DI.DEXA.S_ITS ---
Bone Density Report Name: JODI GUZMAN Age: 67 Sex: Female Ethnicity: Date of : 1955 Indication: screening for osteoporosis; Referring Provider: FELICITAS IYER Study: Bone densitometry was performed. Exam Date: July 10, 2023 Accession number: [id number] Bone Density: Region BMD T-score Z-score Classification AP Spine(L1-L4) 1.297 2.3 4.3 Normal Femoral Neck (Left) 0.842 -0.1 1.6 Normal Total Hip (Left) 0.973 0.3 1.7 Normal Femoral Neck (Right) 0.747 -0.9 0.8 Normal Total Hip (Right) 0.980 0.3 1.7 Normal Total Hip Mean 0.977 0.3 1.7 Normal World Health Organization criteria for BMD impression classify patients as: Normal (T-score at or above -1.0), Osteopenia (T-score between -1.0 and -2.5), or Osteoporosis (T-score at or below -2.5). 10-year Fracture Risk: FRAX not reported because: Premenopausal woman All T-scores for Spine Total, Hip Total, Femoral Neck at or above -1.0 Previous Exams: -- Region Exam Age BMD T-score BMD Change BMD Change Date g/cm2 vs Baseline vs Previous -- AP Spine (L1-L4) 07/10/2023 67 1.297 2.3 -0.115 (-8.1%)# -0.061 (-4.5%)# 06/14/2021 65 1.358 2.8 -0.054 (-3.8%)* -0.054 (-3.8%)* 05/18/2016 60 1.412 3.3 Total Hip(Left) 07/10/2023 67 0.973 0.3 -0.079 (-7.5%)# -0.051 (-5.0%)# 06/14/2021 65 1.024 0.7 -0.029 (-2.7%)* -0.029 (-2.7%)* 05/18/2016 60 1.053 0.9 Total Hip(Right) 07/10/2023 67 0.980 0.3 -0.028 (-2.8%)# 0.045 (4.8%)# 06/14/2021 65 0.935 -0.1 -0.073 (-7.3%)* -0.073 (-7.3%)* 05/18/2016 60 1.008 0.5 -- *Denotes significance at 95% confidence level, LSC for AP Spine = 0.022 g/cm2, LSC for Total Hip = 0.027 g/cm2 # Denotes dissimilar scan types or analysis methods Impression: The patient's bone mass is within expected range for age, gender and ethnicity. No significant bone loss was observed. Discussion: BONE DENSITY IS WITHIN EXPECTED LIMITS FOR AGE, SEX AND RACE. Bone density is within expected limits for age, sex and race at all sites measured. The patient should follow a healthful lifestyle (good nutrition with adequate calcium and vitamin D, and appropriate weight-bearing exercise). Follow-Up: Consider repeating this study in 5 years or sooner if there is some new clinical indication. Reported by: RONEL BAER M.D. on 07/10/2023 8:32:00 AM.
== END ==
PROVIDERS: PCP Registered Nurse Diabetes Educator; Referring Provider Registered Nurse Diabetes Educator; Visit Provider Registered Nurse Diabetes Educator
DX: I34.0 Nonrheumatic mitral (valve) insufficiency (principal); I77.89 Other specified disorders of arteries and arterioles; I51.7 Cardiomegaly; Z78.0 Asymptomatic menopausal state
CPT/HCPCS: 77080; 93306

== ENCOUNTER 2023-09-22 17:06 | Emergency (ER) | payer OTHER, SELFPAY ==
[2023-09-22] VITALS (18 sets, daily range): BP systolic 101–207; BP diastolic 50–92; PULSE 53–63; RESP 18–33; TEMP 36.4; O2SAT 94–99; BMI 32.5
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
[2023-09-22 18:24] LABS: Add Manual Diff / Slide Review NO; Basophils Absolute Auto 100 /uL (0-100); Basophils Percent Auto 0.4 % (0-2); Eosinophils Absolute Auto 100 /uL (0-450); Hematocrit 43.3 % (36-46); Hemoglobin 14.4 g/dL (12.0-16.0); Lymphocytes Absolute Auto 1800 /uL (1100-4500); Mean Corpuscular HGB Conc 33.3 % (30-36); Mean Corpuscular Hemoglobin 30.2 PG (26-34); Mean Corpuscular Volume 90.7 fL (80-100); Monocytes Absolute Auto 900 /uL (0-900); Monocytes Percent Auto 6.3 % (3-14); Neutrophils Absolute Auto 11300 /uL (1500-7000); Neutrophils Percent Auto 79.3 % (50-75); Platelet Count 201 X10^3/uL (150-400); Red Blood Cell Count 4.77 X10^6/uL (4.0-5.2); Red Cell Distribution Width 14.1 % (11.6-14.8); White Blood Cell Count 14.3 X10^3/uL (4.5-11.0)
[2023-09-22 18:42] LABS: Lactate (Lactic Acid) 1.5 mmol/L (0.7-2.1)
[2023-09-22 18:44] LABS: Alanine Aminotransferase 35 IU/L (<35); Albumin 5.1 g/dL (3.5-5.0); Albumin Globulin Ratio 1.5 (1.0-2.8); Alkaline Phosphatase 76 U/L (38-126); Aspartate Aminotransferase 47 IU/L (14-36); BUN Creatinine Ratio 31.5 (6-22); Bilirubin Total 0.6 mg/dL (0.2-1.3); Blood Urea Nitrogen 29 mg/dL (7-17); Calcium 9.6 mg/dL (8.4-10.2); Carbon Dioxide 30 mmol/L (22-32); Chloride 104 mmol/L (98-107); Estimated Glomerular Filt Rate > 60 mL/min (>60); Ethanol (ETOH) < 10 mg/dL; Globulin 3.5 g/dL (1.7-4.1); Glucose 113 mg/dL (80-110); HEMOLYSIS 21 (0-50); Lipase 181 U/L (23-300); Potassium 4.4 mmol/L (3.4-5.1); Sodium 140 mmol/L (137-145); Total Protein 8.6 g/dL (6.3-8.2)
[2023-09-22 18:52] LABS: INR 0.9 (0.9-1.3); Prothrombin Time 10.7 SECONDS (9.4-12.5)
[2023-09-22 18:55] LABS: PTT Partial Thromboplastin Tim 32 SECONDS (25.1-36.5)
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
[2023-09-22] MEDS: TET,DIPH,PERTUSS(ACELL),VAC/PF 0.5 ML SYRINGE IM (19:27)
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
[2023-09-22] MEDS: MORPHINE 4 MG/ML INJ IV (19:47)
[2023-09-22 20:51] LABS: Ur Creatinine Normal (Normal); Ur Specific Gravity Normal (Normal); Urine Amphetamines Negative (Negative); Urine Barbiturates Negative (Negative); Urine Benzodiazepines Negative (Negative); Urine Cocaine Negative (Negative); Urine MDMA Negative (Negative); Urine Methadone Negative (Negative); Urine Methamphetamines Negative (Negative); Urine Opiates Negative (Negative); Urine Oxycodone Negative (Negative); Urine Phencyclidine Negative (Negative); Urine THC Negative (Negative); Urine Tricyclic Antidepressant Negative (Negative); Urine pH Normal (Normal)
== END 2023-09-22 21:06 | disposition home or self-care (01) ==
PROVIDERS: Emergency Medicine; Emergency Provider Emergency Medicine; PCP Registered Nurse Diabetes Educator
DX: M25.512 Pain in left shoulder (principal); R10.9 Unspecified abdominal pain; V89.2XXA Person injured in unspecified motor-vehicle accident, traffic, initial encounter; Z23 Encounter for immunization
CPT/HCPCS: 71045; 71275; 73030; 74177; 80053; 80305; 80320; 83605; 83690; 85025; 85610; 85730; 86850; 86900; 86901; 90471; 93005; 96374; 99284; 90715; J2270; Q9967

== ENCOUNTER → 2023-09-25 17:41 | Outpatient (CLI) | payer OTHER, SELFPAY ==
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
== END ==
PROVIDERS: PCP Registered Nurse Diabetes Educator; Referring Provider Registered Nurse Diabetes Educator; Visit Provider Registered Nurse Diabetes Educator
DX: M47.812 Spondylosis without myelopathy or radiculopathy, cervical region (principal); M48.02 Spinal stenosis, cervical region; M47.816 Spondylosis without myelopathy or radiculopathy, lumbar region; M54.2 Cervicalgia; M54.50 Low back pain, unspecified
CPT/HCPCS: 72050; 72110

== ENCOUNTER → 2023-10-04 08:16 | Outpatient (CLI) | payer OTHER, SELFPAY ==
--- NOTE | 2023-10-04 08:19 | DI.CT.S_ITS ---
PROCEDURE: CT SACRUM INDICATIONS: further eval sacrum/coccyx TECHNIQUE: Noncontrast 3 mm thick sections acquired through the sacrum and coccyx, with sagittal and oblique coronal reformats then constructed. For radiation dose reduction, the following was used: automated exposure control. COMPARISON: [facility], CT, CT TRAUMA CHEST ABDOMEN PELVIS, 09/22/2023, 18:29. FINDINGS: Image quality: Excellent. Bones: No acute fractures. No suspicious bony lesions. Sacroiliac joints appear intact bilaterally. Soft tissues: Subcutaneous fluid collection is seen at the left lower abdominal wall measuring 5.3 x 3.9 x 4.4 cm, likely a small hematoma. This appears increased in size when compared to the CT from 09/22/2023. There is surrounding subcutaneous edema or ecchymosis. Mild presacral edema. No presacral masses. Visualized rectum and inferior bowel loops are normal in size and caliber. No pathologic free pelvic fluid. IMPRESSION: 1. No acute displaced sacrococcygeal fractures seen. If there is concern for an osseous contusion or trabecular bone injury, MRI could be performed for further evaluation. Trace presacral edema. 2. Small fluid collection in the subcutaneous tissues at the left lower abdominal wall measuring up to 5.3 cm is suspicious for a small hematoma. Approved by: Eduardo Harrison M.D. on 10/04/2023 at 10:11
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
== END ==
LOC: CT 08:16
PROVIDERS: PCP Registered Nurse Diabetes Educator; Referring Provider Registered Nurse Diabetes Educator; Visit Provider Registered Nurse Diabetes Educator
DX: T14.8XXA Other injury of unspecified body region, initial encounter (principal); M43.10 Spondylolisthesis, site unspecified; M47.812 Spondylosis without myelopathy or radiculopathy, cervical region; S39.92XA Unspecified injury of lower back, initial encounter; M54.2 Cervicalgia; V87.7XXA Person injured in collision between other specified motor vehicles (traffic), initial encounter
CPT/HCPCS: 36415; 72125; 72131; 85025

== ENCOUNTER → 2023-10-04 16:58 | Outpatient (CLI) | payer OTHER, SELFPAY ==
[2023-10-04 18:03] LABS: Add Manual Diff / Slide Review NO; Basophils Absolute Auto 100 /uL (0-100); Basophils Percent Auto 1.2 % (0-2); Eosinophils Absolute Auto 300 /uL (0-450); Eosinophils Percent Auto 3.5 % (2-4); Hemoglobin 12.7 g/dL (12.0-16.0); Lymphocytes Absolute Auto 2200 /uL (1100-4500); Lymphocytes Percent Auto 28.9 % (25-40); Mean Corpuscular HGB Conc 33.5 % (30-36); Mean Corpuscular Hemoglobin 30.5 PG (26-34); Monocytes Absolute Auto 600 /uL (0-900); Monocytes Percent Auto 8.6 % (3-14); Neutrophils Absolute Auto 4300 /uL (1500-7000); Neutrophils Percent Auto 57.8 % (50-75); Platelet Count 266 X10^3/uL (150-400); Red Blood Cell Count 4.17 X10^6/uL (4.0-5.2); Red Cell Distribution Width 13.6 % (11.6-14.8); White Blood Cell Count 7.5 X10^3/uL (4.5-11.0)
== END ==
PROVIDERS: PCP Registered Nurse Diabetes Educator; Referring Provider Family Medicine; Visit Provider Family Medicine
DX: T14.8XXA Other injury of unspecified body region, initial encounter (principal); V87.7XXA Person injured in collision between other specified motor vehicles (traffic), initial encounter
CPT/HCPCS: 36415; 85025

== ENCOUNTER → 2024-02-19 11:26 | Outpatient (CLI) | payer OTHER, MEDICARE, SELFPAY ==
--- NOTE | 2024-02-19 11:27 | DI.MG.S_ITS ---
BILATERAL DIGITAL SCREENING MAMMOGRAM 3D/2D WITH CAD: 02/19/2024 CLINICAL: Routine screening. Comparison is made to exams dated: 02/21/2023 mammogram, 02/06/2023 mammogram, 01/27/2022 mammogram, and 01/12/2021 mammogram - [facility]. There are scattered areas of fibroglandular density (category b / 25%-50% glandular tissue). Current study was also evaluated with a Computer Aided Detection (CAD) system. No significant masses, calcifications, or other findings are seen in either breast. There has been no significant interval change. IMPRESSION: NEGATIVE There is no mammographic evidence of malignancy. A 1 year screening mammogram is recommended. Based on the Tyrer Cuzick model (a risk assessment model) the patient's lifetime risk is 3.5% and her 10 year risk is 2.1%. According to the ACR, ACS, and NCCN guidelines, an annual breast MRI exam along with mammogram is recommended if the patient's lifetime risk is 20% or greater. This exam was interpreted at Station ID: [id number]. NOTE: For mammograms, a report in lay terms will be sent to the patient. Approximately 15% of breast malignancies will not be visualized mammographically. In the management of a palpable breast mass, a negative mammogram must not discourage biopsy of a clinically suspicious lesion. Electronically Signed By: Priyank posey/je:02/19/2024 13:02:07 letter sent: Normal Exam ACR BI-RADS Category 1: Negative
== END ==
PROVIDERS: Family Provider Registered Nurse Diabetes Educator; PCP Registered Nurse Diabetes Educator; Referring Provider Registered Nurse Diabetes Educator; Visit Provider Registered Nurse Diabetes Educator
DX: Z12.31 Encounter for screening mammogram for malignant neoplasm of breast (principal)
CPT/HCPCS: 77063; 77067

== ENCOUNTER → 2024-03-20 | Outpatient (CLI) | payer OTHER, MEDICARE, SELFPAY | PROVIDERS: Family Provider Registered Nurse Diabetes Educator; PCP Registered Nurse Diabetes Educator; Referring Provider Internal Medicine; Visit Provider Internal Medicine | DX: Z23 Encounter for immunization (principal) | CPT/HCPCS: 90471; 90662 ==

== ENCOUNTER 2024-03-24 10:45 | Outpatient (RCR) | payer OTHER, MEDICARE, SELFPAY ==
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
== END 2024-04-07 08:59 | disposition home or self-care (01) ==
LOC: PHYS 10:45
PROVIDERS: Family Provider Registered Nurse Diabetes Educator; PCP Registered Nurse Diabetes Educator; Referring Provider Registered Nurse Diabetes Educator; Visit Provider Registered Nurse Diabetes Educator
DX: M54.50 Low back pain, unspecified (principal); M54.2 Cervicalgia; V87.7XXA Person injured in collision between other specified motor vehicles (traffic), initial encounter; R53.1 Weakness
CPT/HCPCS: 97110; 97140; 97162; 97530

== ENCOUNTER → 2024-04-27 08:15 | Outpatient (CLI) | payer OTHER, MEDICARE, SELFPAY ==
[2024-04-27 09:19] LABS: Hemoglobin 13.8 g/dL (12.0-16.0); Mean Corpuscular HGB Conc 33.6 % (30-36); Mean Corpuscular Hemoglobin 29.9 PG (26-34); Platelet Count 238 X10^3/uL (150-400); Red Blood Cell Count 4.61 X10^6/uL (4.0-5.2)
[2024-04-27 09:23] LABS: Hemoglobin A1C% w Est Avg Glu 5.9 % (4.0-6.0)
[2024-04-27 09:33] LABS: Alanine Aminotransferase 34 IU/L (<35); Albumin 4.9 g/dL (3.5-5.0); Albumin Globulin Ratio 1.6 (1.0-2.8); Alkaline Phosphatase 95 U/L (38-126); Aspartate Aminotransferase 34 IU/L (14-36); BUN Creatinine Ratio 29.4 (6-22); Bilirubin Total 0.6 mg/dL (0.2-1.3); Blood Urea Nitrogen 32 mg/dL (7-17); Calcium 9.7 mg/dL (8.4-10.2); Carbon Dioxide 26 mmol/L (22-32); Chloride 104 mmol/L (98-107); Cholesterol 186 mg/dL (140-199); Estimated Glomerular Filt Rate 55 mL/min (>60); Globulin 3.1 g/dL (1.7-4.1); Glucose 120 mg/dL (80-110); HDL Cholesterol 91 mg/dL (40-60); HEMOLYSIS < 15 (0-50); LDL Cholesterol Calculated 67 mg/dL (<100); Potassium 4.1 mmol/L (3.4-5.1); Sodium 139 mmol/L (137-145); Triglycerides 141 mg/dL (35-150)
== END ==
PROVIDERS: Family Provider Registered Nurse Diabetes Educator; PCP Registered Nurse Diabetes Educator; Referring Provider Registered Nurse Diabetes Educator; Visit Provider Registered Nurse Diabetes Educator
DX: I10 Essential (primary) hypertension (principal); E78.5 Hyperlipidemia, unspecified; R73.01 Impaired fasting glucose
CPT/HCPCS: 36415; 80053; 80061; 83036; 85027

== ENCOUNTER → 2024-05-04 08:16 | Outpatient (CLI) | payer OTHER, MEDICARE, SELFPAY ==
[2024-05-04 11:05] LABS: BUN Creatinine Ratio 19.4 (6-22); Blood Urea Nitrogen 21 mg/dL (7-17); Calcium 9.8 mg/dL (8.4-10.2); Carbon Dioxide 30 mmol/L (22-32); Chloride 101 mmol/L (98-107); Estimated Glomerular Filt Rate 56 mL/min (>60); Glucose 150 mg/dL (80-110); HEMOLYSIS < 15 (0-50); Potassium 3.8 mmol/L (3.4-5.1); Sodium 137 mmol/L (137-145)
== END ==
PROVIDERS: Family Provider Registered Nurse Diabetes Educator; PCP Registered Nurse Diabetes Educator; Referring Provider Registered Nurse Diabetes Educator; Visit Provider Registered Nurse Diabetes Educator
DX: R94.4 Abnormal results of kidney function studies (principal)
CPT/HCPCS: 36415; 80048

== ENCOUNTER → 2024-07-21 13:36 | Outpatient (CLI) | payer OTHER, MEDICARE, SELFPAY ==
--- NOTE | 2024-07-21 13:38 | DI.ECHO.S_ITS ---
[facility] : : [address] : : [place] : : [id number] : : Phone: [phone] Echocardiogram Report + + :Name: JODI GUZMAN Study Date: 07/21/2024 Height: 64 in : :[facility] ReadingLocation: Weight: 190 lb : : Gender: Female BSA: 1.9 m2 : :: 1955 Age: 68 yrs BP: 157/85 mmHg: :Reason For Study: MITRAL REGURGITATION : :Ordering Physician: SHIREEN, : :FELICITAS Performed By: Cindy Fuentes : :Referring: FELICITAS IYER : + + Interpretation Summary The left ventricle is normal in size and wall thickness. Left ventricular systolic function appears normal without focal wall motion abnormalities. The ejection fraction is estimated to be 60-65%. Diastolic parameters suggest a relaxation abnormality of the left ventricle, consistent with probable normal filling pressures. The right ventricle is at the upper limits of normal in size. The right ventricular systolic function is normal. Pulmonary artery pressures cannot be estimated because of the lack of a measurable TR jet velocity. The left atrial size is normal. There is mild mitral regurgitation. The ascending aorta is mildly enlarged. Procedure: A two-dimensional transthoracic echocardiogram with color flow and Doppler was performed. The study quality was technically adequate. Comparison is made with the echocardiogram of 07/10/2023. The patient was in sinus rhythm with heart rates between 55-82 bpm during the exam. Left Ventricle: The left ventricle is normal in size and wall thickness. Left ventricular systolic function appears normal without focal wall motion abnormalities. The ejection fraction is estimated to be 60-65%. Diastolic parameters suggest a relaxation abnormality of the left ventricle, consistent with probable normal filling pressures. Right Ventricle: The right ventricle is at the upper limits of normal in size. The right ventricular systolic function is normal. Atria: The left atrial size is normal. Right atrial size is normal. There is no Doppler evidence for an interatrial shunt. Mitral Valve: The mitral valve leaflets appear to open well. There is mild mitral regurgitation. Aortic Valve: The aortic valve is trileaflet. The aortic valve opens well. There is no aortic valve stenosis. Tricuspid Valve: The tricuspid valve leaflets are thin and pliable. No tricuspid regurgitation. Pulmonary artery pressures cannot be estimated because of the lack of a measurable TR jet velocity. Pulmonic Valve: The pulmonic valve leaflets are thin and pliable; valve motion is normal. There is no pulmonic valvular regurgitation. Great Vessels: The aortic root is normal size. The ascending aorta is mildly enlarged. The IVC is of normal diameter and collapses greater than 50% with a sniff. This suggests a low right atrial pressure of 3 mm Hg. Pericardium/ Pleura There is no pericardial effusion. There is no pleural effusion. MMode/2D Measurements & Calculations LVIDd: 4.4 cm LVOT diam: 2.0 cm LVIDs: 2.7 cm Ao root diam: 3.4 cm FS: 39.0 % asc Aorta Diam: 3.9 cm EPSS: 0.81 cm Ao Arch Diam (Prox Trans): 3.2 cm IVSd: 0.93 cm LVPWd: 0.98 cm LV begum. diameter/BSA (cm/m^2): 2.3 LV sys. diameter/BSA (cm/m^2): 1.4 LA A2 area: 21.2 cm2 RA long axis: 4.9 cm LA A4 area: 17.1 cm2 RA area: 14.8 cm2 LA length (vol): 5.4 cm RA vol: 38.3 ml LA vol: 57.3 ml RA : 20.0 ml/m2 LA vol index: 30.0 ml/m2 IVC diam: 1.2 cm RVD1 (basal): 4.0 cm TAPSE: 2.0 cm Doppler Measurements & Calculations Ao V2 max: 185.7 cm/sec LVOT Max Anil: 92.8 cm/sec Ao V2 mean: 126.8 cm/sec LV V1 max P.4 mmHg Ao max P.8 mmHg LV V1 VTI: 25.1 cm Ao mean P.1 mmHg LEENA(I,D): 1.9 cm2 Ao V2 VTI: 42.7 cm LEENA(V,D): 1.6 cm2 sev ratio: 0.59 LEENA indexed to BSA (cm^2/m^2): 1.0 MV E max anil: 63.9 cm/sec PA V2 max: 91.2 cm/sec MV A max anil: 85.2 cm/sec PA V2 mean: 69.1 cm/sec MV E/A: 0.75 PA mean P.0 mmHg Med Peak E' Anil: 6.2 cm/sec PA pr(Accel): 23.8 mmHg E/E' med: 10.3 Lat Peak E' Anil: 8.1 cm/sec E/E' lat: 7.9 E/e' average: 9.1 MV dec time: 0.30 sec SV(LVOT): 82.8 ml Reading Physician:04:49 PM
== END ==
PROVIDERS: Family Provider Registered Nurse Diabetes Educator; PCP Registered Nurse Diabetes Educator; Referring Provider Registered Nurse Diabetes Educator; Visit Provider Registered Nurse Diabetes Educator
DX: I34.0 Nonrheumatic mitral (valve) insufficiency (principal); I77.89 Other specified disorders of arteries and arterioles; I51.7 Cardiomegaly
CPT/HCPCS: 93306

== ENCOUNTER → 2025-02-01 07:52 | Outpatient (CLI) | payer OTHER, MEDICARE, SELFPAY ==
[2025-02-01 09:29] LABS: Blood Urea Nitrogen 21 mg/dL (7-17); Calcium 9.8 mg/dL (8.4-10.2); Carbon Dioxide 29 mmol/L (22-32); Chloride 103 mmol/L (98-107); Estimated Glomerular Filt Rate 53 mL/min (>60); Glucose 118 mg/dL (70-99); HEMOLYSIS < 15 (0-50); Potassium 4.5 mmol/L (3.4-5.1); Sodium 139 mmol/L (137-145)
[2025-02-01 11:05] LABS: Microalbumi Creatinin Ratio Ur 16.0 ug/mg CR (<30)
== END ==
PROVIDERS: Family Provider Registered Nurse Diabetes Educator; PCP Registered Nurse Diabetes Educator; Referring Provider Registered Nurse Diabetes Educator; Visit Provider Registered Nurse Diabetes Educator
DX: R94.4 Abnormal results of kidney function studies (principal)
CPT/HCPCS: 36415; 80048; 82043; 82570

== ENCOUNTER → 2025-02-12 13:32 | Outpatient (CLI) | payer OTHER, MEDICARE, SELFPAY ==
--- NOTE | 2025-02-12 13:36 | DI.US.S_ITS ---
PROCEDURE: US RENAL COMPLETE INDICATIONS: CKD3a TECHNIQUE: Real-time scanning was performed of the kidneys and bladder, with image documentation. COMPARISON: None. FINDINGS: Kidneys: Kidneys are normal in size. Right kidney measures 9.6 cm long; left kidney measures 10.3 cm long. Right renal cortical thickness is 1.8 cm; left renal cortical thickness is 1.6 cm. Renal cortical echotexture is mildly increased bilateral. No significant hydronephrosis or nephrolithiasis. No suspicious solid mass lesions. Bladder: Pre-void bladder volume is 161 mL. Post-void residual is 0 mL. Pre- void images demonstrate no intraluminal masses or stones. On pre-void images, the bilateral ureteral jets are noted with color Doppler interrogation. (Of note, ureteral jets may not be detectable in up to 25% of cases due to insufficient differences in specific gravity between ureteral and bladder urine). Miscellaneous: No free pelvic fluid. IMPRESSION: 1. Bilateral renal slightly increased renal cortical echogenicity consistent with medical renal disease. 2. No significant hydronephrosis or nephrolithiasis. Dictated by: Shemar Vásquez M.D. on 02/12/2025 at 15:13 Approved by: Shemar Vásquez M.D. on 02/12/2025 at 15:23
== END ==
PROVIDERS: Family Provider Registered Nurse Diabetes Educator; PCP Registered Nurse Diabetes Educator; Referring Provider Registered Nurse Diabetes Educator; Visit Provider Registered Nurse Diabetes Educator
DX: N18.31 Chronic kidney disease, stage 3a (principal)
CPT/HCPCS: 76770

== ENCOUNTER → 2025-02-26 13:42 | Outpatient (CLI) | payer OTHER, MEDICARE, SELFPAY ==
--- NOTE | 2025-02-26 13:43 | DI.MG.S_ITS ---
MM screening mammo BI: 02/26/2025. BI-RADS: 1 CLINICAL: 69-year old female for bilateral screening mammogram. Tyrer-Cuzick lifetime risk of 2.9%. No personal or first-degree family history of breast cancer. PRIOR EXAMS 02/19/2024, 02/21/2023, 02/06/2023, 01/27/2022. MAMMOGRAPHY TECHNIQUE: 2D and 3D (tomosynthesis) digital mammographic views obtained, with additional images as needed for full coverage. Current study was also evaluated with a Computer Aided Detection (CAD) system. DENSITY B. There are scattered areas of fibroglandular density. MAMMOGRAPHY FINDINGS Bilateral: No suspicious mass, asymmetry, microcalcification, or other abnormality seen. IMPRESSION: * No evidence of malignancy. RECOMMENDATIONS Bilateral * Annual screening mammography. OVERALL ASSESSMENT CATEGORY BI-RADS-1: Negative. The [employer] recommends annual screening mammography beginning at age 40 for women with average risk of breast cancer. ELECTRONICALLY SIGNED: Kayley Guevara M.D. on 02/26/2025 at 10:29:40 PM PT Interpreting Station ID: [id number]
== END ==
LOC: MAMMO 13:42
PROVIDERS: Family Provider Registered Nurse Diabetes Educator; PCP Registered Nurse Diabetes Educator; Referring Provider Registered Nurse Diabetes Educator; Visit Provider Registered Nurse Diabetes Educator
DX: Z12.31 Encounter for screening mammogram for malignant neoplasm of breast (principal)
CPT/HCPCS: 77063; 77067

== ENCOUNTER → 2025-04-02 08:17 | Outpatient (CLI) | payer OTHER, MEDICARE, SELFPAY ==
[2025-04-02 10:14] LABS: Hematocrit 40.2 % (36-46); Hemoglobin 13.6 g/dL (12.0-16.0); Mean Corpuscular HGB Conc 33.8 % (30-36); Mean Corpuscular Hemoglobin 29.9 PG (26-34); Mean Corpuscular Volume 88.4 fL (80-100); Platelet Count 226 X10^3/uL (150-400)
[2025-04-02 10:42] LABS: Alanine Aminotransferase 27 IU/L (<35); Albumin 4.7 g/dL (3.5-5.0); Albumin Globulin Ratio 1.5 (1.0-2.8); Alkaline Phosphatase 80 U/L (38-126); Blood Urea Nitrogen 26 mg/dL (7-17); Calcium 9.5 mg/dL (8.4-10.2); Carbon Dioxide 26 mmol/L (22-32); Chloride 103 mmol/L (98-107); Cholesterol 164 mg/dL (140-199); Estimated Glomerular Filt Rate 57 mL/min (>60); Globulin 3.1 g/dL (1.7-4.1); Glucose 114 mg/dL (70-99); HDL Cholesterol 76 mg/dL (40-60); HEMOLYSIS < 15 (0-50); Sodium 137 mmol/L (137-145); Total Protein 7.8 g/dL (6.3-8.2); Triglycerides 116 mg/dL (35-150)
[2025-04-02 10:44] LABS: Potassium 4.3 mmol/L (3.4-5.1)
[2025-04-02 10:51] LABS: Hemoglobin A1C% w Est Avg Glu 6.1 % (4.0-6.0)
== END ==
PROVIDERS: Family Provider Registered Nurse Diabetes Educator; PCP Registered Nurse Diabetes Educator; Referring Provider Registered Nurse Diabetes Educator; Visit Provider Registered Nurse Diabetes Educator
DX: Z00.00 Encounter for general adult medical examination without abnormal findings (principal); E78.5 Hyperlipidemia, unspecified; R73.01 Impaired fasting glucose
CPT/HCPCS: 36415; 80053; 80061; 83036; 85027

== ENCOUNTER → 2025-04-07 14:38 | Outpatient (CLI) | payer OTHER, MEDICARE, SELFPAY ==
--- NOTE | 2025-04-07 14:41 | DI.RAD.S_ITS ---
PROCEDURE: XR KNEE RT 3V
== END ==
LOC: LAB 14:40 → RAD 14:40
PROVIDERS: Family Provider Registered Nurse Diabetes Educator; PCP Registered Nurse Diabetes Educator; Referring Provider Registered Nurse Diabetes Educator; Visit Provider Registered Nurse Diabetes Educator
DX: M25.561 Pain in right knee (principal); M25.461 Effusion, right knee; G89.29 Other chronic pain
CPT/HCPCS: 73562